=== PATIENT | male | born 2005 | race Asian ===

== ENCOUNTER 2024-06-25 19:15 | Observation (INO) ==
[2024-06-25 20:01] LABS: Urine Appearance Clear; Urine Bilirubin Negative (Negative); Urine Blood 3+ (Negative); Urine Glucose Negative (Negative); Urine Ketones Negative (Negative); Urine Nitrite Negative (Negative); Urine Protein 1+ (>=30 mg/dL) (Negative); Urine Specific Gravity 1.008 (1.002-1.030); Urine Urobilinogen Negative (Negative)
[2024-06-25 20:02] LABS: Urine Bacteria Absent /HPF (Absent); Urine Red Blood Cell Trace(0-2/hpf) /HPF (0-Trace); Urine White Blood Cell Trace(0-5/hpf) /HPF (0-Trace)
[2024-06-25 20:57] LABS: Urine Amorphous Crystals Present /HPF (Absent)
[2024-06-25 21:12] LABS: Urine Color Light-Yellow
[2024-06-25 21:41] LABS: ABS Eosinophils 0.4 10^3/uL (0.0-0.5); ABS Lymphocytes 3.3 10^3/uL (1.0-4.8); ABS Monocytes 0.8 10^3/uL (0.0-1.1); ABS Neutrophils 6.6 10^3/uL (1.5-7.6); ABS Nucleated RBC 0.01 10^3/ul; Eosinophil % 3.7 %; Hematocrit 44.8 % (38-53); Hemoglobin 15.6 g/dL (13.2-16.3); Lymphocyte % 29.3 %; Mean Corpuscular Hemoglobin 30.7 pg (27-33); Mean Corpuscular Hgb Conc 34.8 g/dL (31-36); Mean Corpuscular Volume 88.2 fL (80-97); Nucleated Red Blood Cells % 0.1 %/100WBC (0.0-0.8); Platelet Count 212 10^3/uL (150-450); Red Blood Count 5.08 10^6/uL (4.06-5.63); Red Cell Distribution Width 12.9 % (12-17); White Blood Count 11.1 10^3/uL (3.6-10.2)
[2024-06-25 22:21] LABS: Calcium 10.3 mg/dL (8.6-10.3); Creatinine, Serum 0.81 mg/dL (0.67-1.17); Potassium 4.2 mmol/L (3.5-5.0); eGFR CKD-EPI 128.6 (>60)
[2024-06-25 22:39] LABS: Albumin 4.8 g/dL (3.5-5.7); Albumin/Globulin Ratio 1.9 (1-3); Globulin 2.5 g/dL (2-4); Total Bilirubin 0.6 mg/dL (0.2-1.0); Total Protein 7.3 g/dL (6.4-8.9)
[2024-06-25 23:55] LABS: Rapid Strep Molecular Negative (Negative)
[2024-06-26] MEDS: Lactated Ringers 1000 ml BAG 1,000 ML IV ONE ×2 (00:36→00:39)
[2024-06-26 02:51] LABS: Calcium 9.5 mg/dL (8.6-10.3); Creatinine, Serum 0.84 mg/dL (0.67-1.17); eGFR CKD-EPI 127.2 (>60)
[2024-06-26 03:11] LABS: Albumin 4.1 g/dL (3.5-5.7); Albumin/Globulin Ratio 1.6 (1-3); Globulin 2.5 g/dL (2-4); Total Bilirubin 0.8 mg/dL (0.2-1.0); Total Protein 6.6 g/dL (6.4-8.9)
[2024-06-26 03:42] LABS: C Reactive Protein 2.38 mg/L (<8.01)
[2024-06-26 03:55] LABS: Erythrocyte Sed Rate 5 mm/Hr (0-14)
[2024-06-26 05:07] LABS: Magnesium 1.9 mg/dL (1.9-2.7); Phosphorus 4.6 mg/dL (2.5-5.0)
[2024-06-26] MEDS: NS 0.9% 1000 ml BAG 1,000 ML IV SCH (05:30)
[2024-06-26 08:20] LABS: Hematocrit 41.1 % (38-53); Hemoglobin 14.2 g/dL (13.2-16.3); Mean Corpuscular Hemoglobin 30.4 pg (27-33); Mean Corpuscular Hgb Conc 34.6 g/dL (31-36); Mean Corpuscular Volume 87.9 fL (80-97); Mean Platelet Volume 8.6 fL (7.5-11.2); Platelet Count 193 10^3/uL (150-450); Red Blood Count 4.67 10^6/uL (4.06-5.63); Red Cell Distribution Width 12.9 % (12-17); White Blood Count 8.1 10^3/uL (3.6-10.2)
[2024-06-26 10:20] LABS: Creatinine, Serum 0.82 mg/dL (0.67-1.17); eGFR CKD-EPI 128.2 (>60)
[2024-06-26 11:21] LABS: Albumin/Globulin Ratio 1.7 (1-3); Globulin 2.3 g/dL (2-4); Total Protein 6.3 g/dL (6.4-8.9)
[2024-06-26 15:27] LABS: Calcium 9.1 mg/dL (8.6-10.3); Creatinine, Serum 0.78 mg/dL (0.67-1.17); Potassium 4.4 mmol/L (3.5-5.0); eGFR CKD-EPI 130.1 (>60)
[2024-06-26 16:07] LABS: Albumin/Globulin Ratio 1.8 (1-3); Globulin 2.2 g/dL (2-4); Total Bilirubin 0.7 mg/dL (0.2-1.0); Total Protein 6.2 g/dL (6.4-8.9)
[2024-06-26 16:07] LABS: Hepatitis B Surface Antigen Nonreactive (Nonreactive)
[2024-06-26 16:12] LABS: Hepatitis A Ab IgM Negative (Negative)
[2024-06-26 16:24] LABS: Hepatitis B Surface Ab Not Immune (Immune); Hepatitis C Antibody Negative (Negative)
[2024-06-26 21:48] LABS: Calcium 9.2 mg/dL (8.6-10.3); Creatinine, Serum 0.76 mg/dL (0.67-1.17); Potassium 3.9 mmol/L (3.5-5.0); eGFR CKD-EPI 131.1 (>60)
[2024-06-26 21:51] LABS: Albumin 4.1 g/dL (3.5-5.7); Albumin/Globulin Ratio 2.1 (1-3); Total Bilirubin 0.5 mg/dL (0.2-1.0); Total Protein 6.1 g/dL (6.4-8.9)
[2024-06-27 07:26] LABS: Calcium 8.6 mg/dL (8.6-10.3); Creatinine, Serum 0.72 mg/dL (0.67-1.17); Potassium 3.9 mmol/L (3.5-5.0); eGFR CKD-EPI 133.3 (>60)
[2024-06-27 07:45] LABS: Albumin 3.5 g/dL (3.5-5.7); Albumin/Globulin Ratio 1.8 (1-3); Magnesium 1.8 mg/dL (1.9-2.7); Total Bilirubin 0.6 mg/dL (0.2-1.0); Total Protein 5.5 g/dL (6.4-8.9)
[2024-06-27 10:11] VITALS: BP 125/66
== END 2024-06-27 11:40 | disposition home or self-care (01) ==
LOC: ED 19:15 → EDHOLD 19:15 → SUATTDRO 06-26 04:22 → MEDTELE 06-26 11:21
PROVIDERS: ADMIT Student in an Organized Health Care Education/Training Program; ATTEND Hospitalist